=== PATIENT | male | born 1975 | race Caucasian/White ===

== ENCOUNTER 2017-09-04 17:55 | Emergency (ER) | payer BC, OTHER ==
[2017-09-04] MEDS ORDERED: Lidocaine 1% with EPINEPHrine 1:100,000 20 ML MDV ONE (18:49)
[2017-09-04] MEDS ORDERED: Lidocaine 1% with EPINEPHrine 1:100,000 20 ML MDV INJECT ONE (18:51)
--- NOTE | 2017-09-04 19:26 | EDM.PDOC ---
ED HPI GENERAL MEDICAL PROBLEM - General Chief Complaint: Laceration Stated Complaint: LACERATION TO THE FOREHEAD Time Seen by Provider: 09/04/17 18:47 Source of Information: Reports: Patient History Limitations: Reports: No Limitations (Florinda presents) - History of Present Illness INITIAL COMMENTS - FREE TEXT/NARRATIVE: Patient presents with a laceration to his forehead. Patient states that he was lifting a weight that was blocking a door. He did not realize the weight of the weight and his hand flew up and the weight hit him in the forehead. No loss of consciousness or other injuries, no headache. Head Pain Score (Numeric/FACES): 1 - Related Data Allergies Allergy/AdvReac Type Severity Reaction Status Date / Time No Known Allergies Allergy Verified 09/04/17 18:12 Home Meds: Home Meds . [No Known Home Meds] 09/04/17 [History] Past Medical History - Past Health History Medical/Surgical History: Denies Medical/Surgical History - Infectious Disease History Infectious Disease History: Reports: Chicken Pox Social & Family History - Family History Family Medical History: Noncontributory - Tobacco Use Smoking Status *Q: Never Smoker - Recreational Drug Use Recreational Drug Use: No ED ROS GENERAL - Review of Systems Review Of Systems: ROS reveals no pertinent complaints other than HPI. ED EXAM, SKIN/RASH Exam: See Below Exam Limited By: No Limitations General Appearance: Alert, No Apparent Distress Ears: Normal External Exam Nose: Normal Inspection Throat/Mouth: Normal Inspection Head: Normocephalic, Other (Laceration over forehead 2.5 cm) Neck: Normal Inspection Respiratory/Chest: No Respiratory Distress, Lungs Clear, Normal Breath Sounds Cardiovascular: Normal Peripheral Pulses, Regular Rate, Rhythm GI/Abdominal: Soft Neurological: Alert, Oriented Psychiatric: Normal Affect, Normal Mood Skin: Warm, Dry, Intact, Normal Color Location, Skin: Other (2.5 linear laceration right forehead) Lymphatic: No Adenopathy ED SKIN PROCEDURES - Laceration/Wound Repair Right Head Lac/Wound length In cm: 2.5 Appearance: Subcutaneous Local Anesthesia - Lidocaine (Xylocaine): 1% with EPI Local Anesthetic Volume: 3cc Skin Prep: Chlorhexidine (Hibiciens) Exploration/Debridement/Repair: Wound Explored, In a Bloodless Field, Explored to Base Closed with: Sutures Suture Size: other (5-0 running) # of Sutures: 1 (4 Steri-Strips) Suture Type: Running Course - Vital Signs Last Recorded V/S: Last Vital Signs Temp 36.9 C 09/04/17 18:10 Pulse 88 09/04/17 18:10 Resp 18 09/04/17 18:10 BP 134/83 09/04/17 18:10 Pulse Ox 98 09/04/17 18:10 - Orders/Labs/Meds Meds: Medications Discontinued Medications Generic Name Dose Route Start Last Admin Trade Name Ngozi PRN Reason Stop Dose Admin Lidocaine/Epinephrine 20 ml 09/04/17 18:51 09/04/17 18:51 Xylocaine 1% With Epinephrine 1:100,000 INJECT 09/04/17 18:52 20 ml ONETIME ONE Administration Lidocaine/Epinephrine Confirm 09/04/17 18:49 Xylocaine 1% With Epinephrine 1:100,000 Administered 09/04/17 18:50 Dose 20 ml .ROUTE .STK-MED ONE Departure - Departure Time of Disposition: 19:26 Disposition: Home, Self-Care 01 Condition: Good Clinical Impression: Laceration - Discharge Information Referrals: PCP,None [Primary Care Provider] - [facility] [Outside] [facility] [Outside] Additional Instructions: 1. Keep laceration clean. May wash hair--avoid rubbing laceration 2. Watch for signs of infection, redness, swelling, drainage, report promptly 3. Suture removal one week.
== END 2017-09-04 19:40 | disposition home or self-care (01) ==
LOC: MW.ED 17:55
DX: S01.81XA Laceration without foreign body of other part of head, initial encounter (principal); W22.8XXA Striking against or struck by other objects, initial encounter
CPT/HCPCS: 99282